=== PATIENT | male | born 1980 | race Caucasian/White ===

== ENCOUNTER 2016-10-04 00:21 | Emergency (ER) | payer SELFPAY ==
[2016-10-04 00:21] VITALS: BMI 26.0
--- NOTE | 2016-10-04 00:43 | C.PDOC ---
History Of Present Illness 36 year old male presents to ER with a complaint of left testicular pain and swelling for 4 days. He says the swelling was biggest on Sunday and has since improved. Patient has taken nothing for the pain; denies fever, chills, nausea , or vomiting. Denies hx of STD. Time Seen by Provider: 10/04/16 00:42 Chief Complaint (Nursing): Groin Pain History Per: Patient History/Exam Limitations: no limitations Onset/Duration Of Symptoms: Days (4) Current Symptoms Are (Timing): Still Present Recent travel outside of the [place]: No Past Medical History Reviewed: Historical Data, Nursing Documentation, Vital Signs Vital Signs: Last Vital Signs Temp 97.8 F 10/04/16 00:24 Pulse 61 10/04/16 00:24 Resp 20 10/04/16 00:24 BP 127/80 10/04/16 00:24 Pulse Ox 98 10/04/16 02:12 - Medical History PMH: No Chronic Diseases - [facility] Procedures EXC SPERMATIC VARICOCELE (06/22/14) Family History: States: Unknown Family Hx - Social History Hx Alcohol Use: No Hx Substance Use: No Review Of Systems Constitutional: Negative for: Fever, Chills Cardiovascular: Negative for: Chest Pain, Palpitations Gastrointestinal: Negative for: Nausea, Vomiting Genitourinary: Positive for: Scrotal Pain. Negative for: Dysuria, Penile Discharge Neurological: Negative for: Weakness, Numbness Physical Exam - Physical Exam Appears: Non-toxic Skin: Normal Color, Warm, Dry Head: Atraumatic, Normacephalic Oral Mucosa: Moist Chest: Symmetrical, No Tenderness Cardiovascular: Rhythm Regular, No Murmur Respiratory: Normal Breath Sounds, No Rales, No Rhonchi, No Wheezing Gastrointestinal/Abdominal: Soft, No Tenderness Male Genital: Testicular Tenderness (Left), Testicular Swelling (Left), No Other (No redness or warmth) Neurological/Psych: Oriented x3, Normal Speech, Normal Cognition ED Course And Treatment O2 Sat by Pulse Oximetry: 98 (Room air) Pulse Ox Interpretation: Normal - CT Scan/US US Scrotum Other Rad Studies (CT/US): Read By Radiologist, Radiology Report Reviewed CT/US Interpretation: EXAM: US Scrotum. CLINICAL HISTORY: 36 years old, male ; Signs and symptoms; Swelling, testicles or scrotum; Additional info: Pain and. swelling. TECHNIQUE: Real-time ultrasound of the scrotum with color Doppler and image documentation. COMPARISON: No relevant prior studies available. FINDINGS: Right testicle: Unremarkable. No mass. No torsion. Left testicle: Unremarkable. No mass. No torsion. Epididymides: Unremarkable. Scrotum: Large left hydrocele with some echogenic material within it which may represent cellular. debris. Small right hydrocele. IMPRESSION: 1. Large left hydrocele with some echogenic material within it which may represent cellular debris. 2. Small right hydrocele. Similar echogenicity. Medical Decision Making Medical Decision Making: Urine culture and testicular US ordered. 228am disc results w the pt. he is resting comfortable in no distress. he has a urologist, Dr Rodrigues and I advised he call him in the morning for follow up. Disposition - Disposition Disposition: HOME/ ROUTINE Disposition Time: 02:29 Condition: STABLE - Clinical Impression Clinical Impression: Hydrocele of testis - Scribe Statement The provider has reviewed the documentation as recorded by the Scribileana Dacsota All medical record entries made by the Jay were at my direction and personally dictated by me. I have reviewed the chart and agree that the record accurately reflects my personal performance of the history, physical exam, medical decision making, and the department course for this patient. I have also personally directed, reviewed, and agree with the discharge instructions and disposition.
[2016-10-04 00:58] LABS: URINE BILIRUBIN NEGATIVE (NEGATIVE); URINE BLOOD 1+ (NEGATIVE); URINE CLARITY Clear (Clear); URINE COLOR Yellow (YELLOW); URINE GLUCOSE (UA) NORMAL (Normal); URINE LEUKOCYTE ESTERASE NEG Leu/uL (Negative); URINE NITRATE NEGATIVE (NEGATIVE); URINE PROTEIN NEGATIVE (NEGATIVE); URINE UROBILINOGEN NORMAL mg/dL (0.2-1.0)
[2016-10-04 02:43] VITALS: BP 116/70; PULSE 66; RESP 18; TEMP 97.7; O2SAT 96
--- NOTE | 2016-10-04 10:01 | US ---
HISTORY: pain and swelling TECHNIQUE: Realtime sonography through the scrotum with color and doppler flow. COMPARISON: None Available. FINDINGS: RIGHT TESTICLE: Measures 3.7 x 2.1 x 2.6 cm. Normal echotexture and flow. There are diffusely scattered tiny calcifications. RIGHT EPIDIDYMIS: Epididymal head measures 0.6 x 1.0 x 0.9 cm. Grossly unremarkable appearance with normal flow. LEFT TESTICLE: Measures 4.4 x 2.6 x 2.8 cm. Normal echotexture and flow. There are diffusely scattered tiny calcifications the LEFT EPIDIDYMIS: Epididymal head measures 1.0 x 0.8 x 0.8 cm. Grossly unremarkable appearance with normal flow. HYDROCELE: There is a small right and large left hydrocele with internal debris. VARICOCELE: None. OTHER FINDINGS: None. IMPRESSION: 1. Testicular microlithiasis. No evidence of testicular mass, torsion or epididymal orchitis. Clinical follow-up and correlation with high risk factors for testicular malignancy is advised, and if clinically indicated annual ultrasound may be performed. 2. Complicated small right and large left hydroceles.
== END 2016-10-04 02:41 | disposition home or self-care (01) ==
LOC: C.ER 00:21
DX: N43.3 Hydrocele, unspecified (principal)